=== PATIENT | female | born 1990 | race Caucasian/White ===

== ENCOUNTER 2019-12-29 06:55 | Inpatient (IN) | payer BC ==
[~2019-12-29] VITALS: Ht 170.2 cm; Wt 67.3 kg
[2019-12-29] VITALS (12 sets, daily range): BP systolic 111–151; BP diastolic 57–83; PULSE 70–98; TEMP 97.5–99.1
[~2019-12-29 06:55] MED LIST: IBU800 M1 PO; METHERGINE0.2 MG/TAB PO; NO HOME MEDICATIONS; PRENATAL1 TA1; TEGRETOL X200 MG/TA1 PO
[2019-12-29] MEDS ORDERED: LAMICTAL XR100 MG PO (07:05)
[2019-12-29] MEDS ORDERED: PRENATAL (07:05)
[2019-12-29 07:14] LABS: BASO % 0.3 % (0.0-2.0); EOS # 0.1 (0.0-0.7); EOS % 0.6 % (0-4.0); GRAN # 7.3 (1.4-6.5); GRAN % 74.5 % (42.2-75.2); HEMOGLOBIN 12.4 g/dl (12.5-16.0); LYMPH # 1.6 (1.2-3.4); LYMPH % 16.1 % (20.0-51.0); MEAN CELL VOLUME 89 fl (80.0-100.0); MEAN CORPUSCULAR HEMOGLOBIN 30 pg (27.0-31.0); MEAN CORPUSCULAR HGB CONC 34 g/dl (33.0-37.0); MEAN PLATELET VOLUME 10.7 fl (7.4-10.4); MONO # 0.7 (0.1-0.6); MONO % 7.3 % (1.7-9.3); PLATELET COUNT 154 K/mm3 (130-400); RED BLOOD COUNT 4.15 M/mm3 (4.10-5.30); REDCELL DISTRIBUTION WIDTH-CV 13.1 % (11.5-14.5)
[2019-12-29 07:17] LABS: HEMATOCRIT 36.9 % (37.0-47.0)
[2019-12-30 00:22] VITALS: BP 120/71; PULSE 69; TEMP 98.6
[2019-12-30 05:23] VITALS: BP 107/57; PULSE 72; TEMP 98.9
[2019-12-30 06:57] VITALS: BP 106/76; PULSE 93; TEMP 98.3
[2019-12-30] MEDS ORDERED: IBU600 MG PO (08:29)
== END 2019-12-30 14:15 | disposition home or self-care (01) | DRG 807 ==
LOC: LDRO 06:55 → LDR 06:55 → LDRO 06:56 → LDR 07:03 → OB 09:45
PROVIDERS: ADMIT Obstetrics & Gynecology
PROC: 10E0XZZ Delivery of Products of Conception, External Approach (ICD-10-PCS; principal; 2019-12-29)
PROC: 10D17Z9 Manual Extraction of Products of Conception, Retained, Via Natural or Artificial Opening (ICD-10-PCS; 2019-12-29)
DX: O73.1 Retained portions of placenta and membranes, without hemorrhage (principal); Z37.0 Single live birth; Z3A.38 38 weeks gestation of pregnancy
CPT/HCPCS: J2400; J2590; J7120